=== PATIENT | male | born 1940 | race Caucasian/White ===

== ENCOUNTER 2018-12-31 13:44 | Emergency (ER) | payer OTHER ==
[~2018-12-31] VITALS: Ht 188 cm; Wt 81.6 kg
[2018-12-31] MEDS ORDERED: SODIUM CHLORIDE 0.9% 1,000 ML IV ONE ×2 (14:21)
[2018-12-31 15:10] LABS: Basophils # (auto) 0.1 uL; Basophils % (auto) 0.7 % (0.0-2.0); Eosinophils # (auto) 0 uL; Eosinophils % (auto) 0.3 % (0.0-7.0); Hematocrit 49.4 % (41.0-53.0); Hemoglobin 16.6 g/dL (13.5-17.5); Lymphocytes % (auto) 8.8 % (10.0-50.0); Mean Corpuscular Hemoglobin 30.8 pg (28.0-32.0); Mean Corpuscular Hgb Conc. 33.6 g/dL (32.0-36.0); Mean Corpuscular Volume 91.6 fL (80.0-100.0); Monocytes # (auto) 0.6 uL; Monocytes % (auto) 5.3 % (0.0-12.0); Neutrophils # (auto) 9.6 uL; Neutrophils % (auto) 84.9 % (37.0-80.0); Nucleated Red Blood Cells % 0.1 %; Platelet Count (auto) 342 10^3/uL (140-450); Red Blood Cells 5.39 10^6/uL (4.5-5.90); Red Cell Distribution Width 14.2 % (11.8-14.3); White Blood Cell 11.4 10^3/uL (4.4-10.8)
[2018-12-31 15:14] LABS: Alanine Aminotransferase 15 U/L (16-61); Albumin 3.4 g/dL (3.4-5.0); Anion Gap 7 (5-15); Aspartate Aminotransferase 16 U/L (15-37); BUN/Creatinine Ratio 14.4; Blood Urea Nitrogen 22 mg/dL (7-18); Carbon Dioxide 27 mmol/L (21-32); Chloride 103 mmol/L (98-107); GFR African American 57 mL/min; GFR Non-African American 47 mL/min; Glucose 123 mg/dL (74-106); Potassium 3.7 mmol/L (3.5-5.1); Sodium 137 mmol/L (136-145)
[2018-12-31 15:19] LABS: Alkaline Phosphatase 59 U/L (45-117); Bilirubin, Total 0.6 mg/dL (0.2-1.0); Total Protein 8.1 g/dL (6.4-8.2)
[2018-12-31 15:22] VITALS: BP 116/57
[2018-12-31] MEDS ORDERED: cefTRIAXone 1GM/50ML D5W 50 ML IV ONE (17:30)
[2018-12-31] MEDS ORDERED: LIDOCAINE 1% HCL (LOCAL ANESTH.) INJ 20ML MDV ONE (17:33)
[2018-12-31] MEDS ORDERED: cefTRIAXone SOD 1,000 MG VL ONE (17:34)
[2018-12-31] MEDS ORDERED: cefTRIAXone W LIDOCAINE 1 GM IM IM ONE (17:45)
== END 2018-12-31 17:58 | disposition home or self-care (01) ==
LOC: EDBD 13:44 → ER 13:55 → EEVIPCON 13:55 → ER 17:58
DX: S00.01XA Abrasion of scalp, initial encounter (principal); R55 Syncope and collapse; E86.0 Dehydration; D72.829 Elevated white blood cell count, unspecified; I10 Essential (primary) hypertension; X58.XXXA Exposure to other specified factors, initial encounter; Y93.89 Activity, other specified; Y92.89 Other specified places as the place of occurrence of the external cause; Y99.8 Other external cause status
CPT/HCPCS: 36415; 70450; 80053; 84484; 85025; 96372; 99284; J0696; J2001; J7030